=== PATIENT | female | born 1960 | race African-American/Black ===

== ENCOUNTER 2017-05-28 14:15 | Emergency (ER) | payer SELFPAY ==
[~2017-05-28 14:15] MED LIST: HYDR25 PO; LEVA500T PO; LISI-360 PO; NAPR220T95 PO; PRED20 PO
[2017-05-28 14:17] VITALS: BP 173/87; PULSE 83; RESP 15; TEMP 98.4; O2SAT 98
--- NOTE | 2017-05-28 14:25 | PD ---
Physical Exam Time Seen by Provider: 14:21 Narrative 57yo F c/o sore throat and left ear pain that started yesterday. +cough and nasal congestion. No noted peritonsillar abscess noted in triage. Patient seen in triage. VS reviewed. Awaiting bed placement. Data Data Last Documented VS Vital Signs Date Time Temp Pulse Resp B/P (MAP) Pulse Ox O2 Delivery O2 Flow Rate FiO2 05/28/17 14:17 98.4 83 15 173/87 (115) 98 MDM Supervised Visit with KYRA: Terra Koenig May 28, 2017 14:25
--- NOTE | 2017-05-28 15:14 | PD ---
HPI . ear pain Chief Complaint: ENT Complaint Time Seen by Provider: 15:11 Travel History International Travel<30 days: No Contact w/Intl Traveler<30days: No Traveled to known affect area: No History of Present Illness HPI 57-year-old female here with complaints of ear pain that started yesterday. She denies any fever or chills. She has no other complaints. PFSH Past Medical History Arthritis: Yes Anxiety: Yes Depression: Yes Diminished Hearing: No Musculoskeletal: Yes (HX OF HAND AND ARM FRACTURES) Respiratory: Yes (HX OF TB 2001) Immunizations Current: Yes Menopausal: Yes : 5 Para: 3 Miscarriage: 2 Tubal Ligation: Yes (1994) Past Surgical History Appendectomy: Yes (1974) Section: Yes (X4) Gynecologic Surgery: Yes Social History Alcohol Use: Yes Tobacco Use: Yes Substance Use: No Allergies-Medications (Allergen,Severity, Reaction): Coded Allergies: No Known Allergies (Verified , 09/13/14) Reported Meds & Prescriptions Reported Meds & Active Scripts Active Atarax 25 Mg Tab (Hydroxyzine Hcl) 25 Mg Tab 25-50 Mg PO Q6 Deltasone (Prednisone) 20 Mg Tab 20 Mg PO BID Lisinopril 10 mg (Lisinopril) 10 Mg Tab 10 Mg PO DAILY Levaquin 500 Mg Tab (Levofloxacin) 500 Mg Tab 500 Mg PO DAILY Reported Aleve (Naproxen Sodium) 220 Mg Tab 220 Mg PO BID taking 2 tabs twice a day Review of Systems General / Constitutional: No: Fever Eyes: No: Visual changes HENT: Positive: Earache, No: Headaches, Ear Discharge Cardiovascular: No: Chest Pain or Discomfort Respiratory: No: Shortness of Breath Gastrointestinal: No: Abdominal Pain Genitourinary: No: Dysuria Musculoskeletal: No: Pain Skin: No Rash Neurologic: No: Weakness Psychiatric: No: Depression Endocrine: No: Polydipsia Hematologic/Lymphatic: No: Easy Bruising Physical Exam Narrative GENERAL: AAO x 3, no acute distress, Well-nourished, well-developed patient. SKIN: Warm and dry. No visible rashes or bruising. HEAD: Normocephalic and atraumatic. EYES: No scleral icterus. No injection or drainage. ENT: No nasal drainage noted. Mucous membranes pink. Airway patent. Clear effusions behind bilateral TMs NECK: Supple, trachea midline. No JVD. No lymphadenopathy CARDIOVASCULAR: Regular rate and rhythm without murmurs, gallops, or rubs. RESPIRATORY: Breath sounds equal bilaterally. No accessory muscle use. No rhonchi or rales. GASTROINTESTINAL: Visual inspection normal EXTREMITIES: No cyanosis or edema. BACK: No obvious deformity NEURO: Grossly intact PSYCH: AAO x 3, normal affect. Data Data Last Documented VS Vital Signs Date Time Temp Pulse Resp B/P (MAP) Pulse Ox O2 Delivery O2 Flow Rate FiO2 05/28/17 14:17 98.4 83 15 173/87 (115) 98 MDM Medical Decision Making Medical Screen Exam Complete: Yes Emergency Medical Condition: No Medical Record Reviewed: Yes Differential Diagnosis allergic rhinitis, sinusitis, OM, OE, less likely mastoiditis Narrative Course A medical screening exam was performed: At the time of evaluation the presenting medical condition was determined not to be of an emergent nature. The patient was given the option of receiving additional care, but declined. Patient was given options for additional community resources from which to obtain care. The Patient Has Been advised to seek medical attention for their presenting complaint. The patient has been advised to return to the ER at any time if an emergent condition develops. I personally spoke with a provider at the community clinic. She will see the patient right now. Patient escorted to the community clinic by financial counselors. Diagnosis Primary Impression: Encounter for medical screening examination Condition: Stable Pallavi Romo May 28, 2017 15:14
== END 2017-05-28 15:23 | disposition left against medical advice (07) ==
LOC: NEPK 14:15
DX: H92.09 Otalgia, unspecified ear (principal); M13.80 Other specified arthritis, unspecified site; F41.9 Anxiety disorder, unspecified; F32.9 Major depressive disorder, single episode, unspecified; Z86.11 Personal history of tuberculosis; Z79.899 Other long term (current) drug therapy; Z72.0 Tobacco use
CPT/HCPCS: 99281